=== PATIENT | male | born 1990 | race Caucasian/White ===

== ENCOUNTER 2020-05-02 23:40 | Emergency (ER) | payer BC, SELFPAY ==
[2020-05-02 23:42] VITALS: BP 146/99; PULSE 86; RESP 16; TEMP 36.7; O2SAT 100; BMI 37.0
--- NOTE | 2020-05-03 | EKG12_ITS ---
Test Reason : CP Blood Pressure : / mmHG Vent. Rate : 087 BPM Atrial Rate : 087 BPM P-R Int : 138 ms QRS Dur : 098 ms QT Int : 346 ms P-R-T Axes : 041 010 037 degrees QTc Int : 416 ms Normal sinus rhythm with sinus arrhythmia Normal ECG Confirmed by SHERITA CARVAJAL, WHITNEY ([id number]), industrial editor AUSTIN INIGUEZ ([id number]) on 05/05/2020 10:03:16 AM Referred By: MERLIN Confirmed By:WHITNEY MAGALLON MD
--- NOTE | 2020-05-03 | RAD_ITS ---
STUDY: X-RAY CHEST REASON FOR EXAM: Male, 30 years old. Chest pain. TECHNIQUE: PA and lateral COMPARISON: None. FINDINGS: No apparent pneumothorax, pneumonia, pleural effusion, or edema. Cardiac silhouette, marimar and mediastinal contours are within normal limits. No acute osseous abnormality. No evidence of free air under the diaphragm. RAD/Chest PA and Lateral IMPRESSION: Negative chest radiograph. Electronically Signed: Abraham Blake MD at 0:27 EDT Tel , Service support ,
[2020-05-03 00:01] VITALS: O2SAT 98
[2020-05-03 00:07] LABS: Absolute Lymphocyte Count 1.86 X10^3/uL (0.83-4.51); Basophil# 0.05 X10^3/uL; Basophil% 0.7 % (0-1); Eosinophils% 2.6 % (0-5); Lymphocyte # 1.86 X10^3/ul (4.0); Lymphocyte % 24.4 % (19-41); Mean Corp Hgb Conc 34.8 g/dL (32-36); Mean Corpuscular Hgb 29.4 pg (27.0-32.0); Mean Corpuscular Volume 84.6 fL (80-94); Mean Platelet Vol. 11.4 fl (6.2-12.0); Monocyte# 0.52 X10^3/uL; Monocyte% 6.8 % (0-10); NRBC Flagged by Analyzer 0 % (0-5); Neutrophil # 4.98 X10^3/uL (2.7-7.7); Neutrophil % 65.2 % (47-70); Platelet Count 209 K/mm3 (150-450); RBC Distribution Width CV 11.9 % (11.6-14.6); RBC Distribution Width SD 35.7 fl (35.1-43.9); Red Blood Count 5.44 M/mm3 (4.6-6.2); White Blood Count 7.6 K/mm3 (4.4-11.0)
--- NOTE | 2020-05-03 00:20 | ED.DCSUM_ITS ---
History of Present Illness Chief Complaint: Chest Other Informant: Patient Narrative: Patient presenting for evaluation secondary to chest palpitations. Patient reports that over the course about the last 3 weeks he has noticed while he is at rest he is having more frequent episodes of palpitations. He reports that these are hard beats of the heart or not necessarily associated with racing heart or chest pain. He denies any shortness of breath. He states that during the day when he is at work and exerting himself he notices it less. He states that it also potentially seems to be associated with when he is using his nicotine vaporizer more often. Patient denies any history of DVT or PE, no recent travel or surgery. No recent weight loss weight gain changes in appetite or heat or cold intolerance. He states that he always has some issues with swallowing, but nothing new and no throat pain. Review of systems otherwise negative. Past Medical History - Allergies and Home Meds Allergies/Adverse Reactions: Allergies No Known Allergies Allergy (Verified 05/02/20 23:44) Primary Care Physician: Trish Floyd DO [Primary Care Provider] - Prior records reviewed: Yes Past Medical History: None Surgical History: noncontributory Lives: Spouse/ Significant Other Smoking Status: Current every day smoker Alcohol: Occasional Drugs: None Review of Systems All systems negative except as indicated General: Denies: Chills, Fever, Sweats Eyes: Denies: Visual changes - bilaterally, Diplopia ENT: Denies: Rhinorrhea, Sore throat Cardiovascular: Reports: Palpitations Respiratory: Denies: Dyspnea, Cough, Dyspnea on exertion Gastrointestinal: Denies: Abdominal pain, Nausea, Vomiting, Diarrhea, Melena, Hematochezia Genitourinary: Denies: Dysuria, Hematuria, Frequency Musculoskeletal: Denies: Back pain, Extremity Pain Skin: Denies: Rash, Wounds Neurological: Denies: Headache, Weakness, Numbness Physical Exam Vital Signs/Narrative: Vital Signs Temp Pulse Resp BP Pulse Ox 05/03/20 00:01 98 05/02/20 23:42 98.1 F 86 16 146/99 H 100 Inital Vital Signs reviewed: Yes General: Well nourished, Well developed, No Acute Distress Head: Normocephalic, Atraumatic Eyes: Perrl, EOMI ENT: Moist mucous membranes, No rhinorrhea Neck: Supple, Nontender Cardiovascular: Regular rate, Regular rhythm, No murmurs Respiratory: No distress, CTA bilaterally, Chest nontender Abdomen: Soft, Nontender, Nondistended, Normal bowel sounds Back: Nontender, Normal Inspection Extremities: Nontender, No edema Skin: Normal color, No rash Neurological: Alert, Oriented x3, Cranial nerves II-XII grossly intact, Normal Strength, Normal Sensation Psychological: Normal affect, Normal Mood Diagnostic/Tx/Re-eval Chest X-Ray - ED: 2 View, Read by ED Physician, Normal Clinical Impression(s) from Imaging Studies Chest X-Ray 05/03/20 00:00 IMPRESSION: Negative chest radiograph. Electronically Signed: Abraham Blake MD at 0:27 EDT Tel , Service support , Laboratory Data 05/02/20 05/02/20 23:55 23:55 WBC 7.6 RBC 5.44 Hgb 16.0 Hct 46.0 MCV 84.6 MCH 29.4 MCHC 34.8 RDW Std Deviation 35.7 RDW Coeff of Narendra 11.9 Plt Count 209 MPV 11.4 Immature Gran % (Auto) 0.300 Neut % (Auto) 65.2 Lymph % (Auto) 24.4 Highland % (Auto) 6.8 Eos % (Auto) 2.6 Baso % (Auto) 0.7 Absolute Neuts (auto) 5.0 Absolute Lymphs (auto) 1.86 Nucleated RBC % 0 Sodium 142 Potassium 3.4 L Chloride 106 Carbon Dioxide 30.0 Anion Gap 6 BUN 17 Creatinine 1.04 Estim Creat Clear Calc 108.61 Est GFR (MDRD) Af Amer 106 Est GFR (MDRD) Non-Af 88 BUN/Creatinine Ratio 16.3 Glucose 107 H Calcium 9.5 Magnesium 2.4 Troponin I < 0.015 TSH 2.27 - EKG Initial EKG Interpretation: - - Sinus rhythm of 87 with sinus arrhythmia, normal DC and QTc intervals isoelectric ST segments normal T waves no evidence of WPW or Brugada morphology no acute ischemia. - Medical Decision Making Patient presented secondary to palpitations. Patient is capital PE RC negative, no indication for work-up for pulmonary embolism. PA and lateral chest x-ray by my personal review demonstrates no acute pathology, radiology agrees. CBC chemistry TSH and troponin found to be unremarkable heart score is a maximum of a 1. I believe the patient likely is experiencing symptomatic PVCs potentially precipitated by his nicotine use. I recommended that he decrease his nicotine usage, and continue to monitor his symptoms. Should he continue to have symptoms after that I will provide him with follow-up with cardiology for Holter monitoring and further evaluation. Patient was given reassurance, he was dis charged in stable condition. ED Disposition - Plan for ED Patient: Disposition: Home or Assisted Living Diagnosis: Palpitations Instructions: ED Palpitations Referrals: Imani Colin MD [STAFF PHYSICIAN] - As Needed
[2020-05-03 00:34] LABS: Anion Gap 6 (5-15); BUN 17 mg/dL (7-18); BUN/Creat Ratio 16.3 RATIO (10-20); Calcium,Total 9.5 mg/dL (8.5-10.1); Chloride 106 mmol/L (98-107); Creatinine, Serum 1.04 mg/dL (0.70-1.30); EST Glomerular Filtration Rate 88 mL/min (>60); Est Glom Filt Rate - Afr Amer 106 mL/min (>60); Estimated Creatinine Clearance 108.61 ml/min; Glucose 107 mg/dL (74-106); Magnesium 2.4 mg/dL (1.6-2.6); Potassium 3.4 mmol/L (3.5-5.1); Sodium Level 142 mmol/L (136-145); Thyroid Stim Hormone (TSH) 2.27 uIU/mL (0.358-3.74)
[2020-05-03 01:07] VITALS: BP 123/71; PULSE 82; RESP 17; O2SAT 98
== END 2020-05-03 01:07 | disposition home or self-care (01) ==
PROVIDERS: Emergency Provider Emergency Medicine; PCP Internal Medicine
DX: R00.2 Palpitations (principal); F17.200 Nicotine dependence, unspecified, uncomplicated
CPT/HCPCS: 71046; 80048; 83735; 84443; 84484; 85025; 93005; 99283; A4216